=== PATIENT | male | born 1970 | race Caucasian/White ===

== ENCOUNTER 2018-09-25 22:00 | Emergency (ER) | payer SELFPAY ==
[~2018-09-25] VITALS: Ht 177.8 cm; Wt 78.1 kg
[2018-09-25 22:16] VITALS: BP 131/70; PULSE 90; RESP 18; Ht 177.8 cm; Wt 78.1 kg
[2018-09-27] MEDS ORDERED: NAPR-985 PO (18:46)
== END 2018-09-26 01:30 | disposition left against medical advice (07) ==
LOC: FTE 22:00
DX: Z53.21 Procedure and treatment not carried out due to patient leaving prior to being seen by health care provider (principal)

== ENCOUNTER → 2018-09-27 | Emergency (ER) | payer OTHER ==
[~2018-09-27] VITALS: Ht 162.6 cm; Wt 79.0 kg
[~2018-09-27] MED LIST: NAPR-985 PO
[2018-09-27 17:32] VITALS: BP 134/71; PULSE 84; RESP 18; Ht 162.6 cm; Wt 79.0 kg
--- NOTE | 2018-09-27 19:07 | ERD ---
ER Documentation Chief Complaint Chief Complaint right wrist pain HPI This is an otherwise healthy 48-year-old male presenting to the emergency department complaining of constant right wrist pain after injury 3 days ago. He states he was swinging his arm through the air when he accidentally hit his right wrist against the concrete ground. He reports 7/10 pain which is worse with movement. He took ibuprofen at home with some relief. He denies any other symptoms or injuries at this time. ROS All systems reviewed and are negative except as per history of present illness. Medications Home Meds Active Scripts Naproxen* (Naprosyn*) 500 Mg Tablet, 500 MG PO BID PRN for PAIN AND/OR INFLAMMATION, #30 TAB Prov:PAIGE GREENBERG PA-C 09/27/18 Allergies Allergies: Coded Allergies: No Known Drug Allergies (Verified Allergy, Unknown, 09/25/18) PMhx/Soc Medical and Surgical Hx: pt denies Medical Hx, pt denies Surgical Hx Physical Exam Vitals Vital Signs Date Temp Pulse Resp B/P (MAP) Pulse Ox O2 O2 Flow FiO2 Time Delivery Rate 09/27/18 98.0 84 18 134/71 99 17:32 (92) Physical Exam Const: No acute distress Head: Atraumatic Eyes: Normal Conjunctiva ENT: Normal External Ears, Nose and Mouth. Neck: Full range of motion. No meningismus. Resp: No respiratory distress. Skin: No petechiae or rashes Back: No midline or flank tenderness Ext: Mild tenderness palpation noted to the ulnar aspect of the right wrist. No snuffbox tenderness. Range of motion of the right wrist is slightly limited secondary to pain. Patient is neurovascularly intact to the right upper extremity. 2+ radial pulses noted to the right upper extremity. No obvious deformity or open fractures noted. Neur: Awake and alert Psych: Normal Mood and Affect Results 24 hrs [place] [id number] Radiology Main Line: [phone] DIAGNOSTIC IMAGING REPORT Patient: LONNIE MURCIA : 1970 Age: 48 Sex: M MR #: [id number] DOS: 09/27/18 0000 Ordering MD: PAIGE GREENBERG PA-C Location: [facility] Room/Bed: PROCEDURE: XR Wrist. CLINICAL INDICATION: Right wrist pain TECHNIQUE: 4 views of the right wrist were performed. COMPARISON: No prior studies are available for comparison. FINDINGS: There is no acute fracture. Alignment is normal. Joint spaces are preserved. Visualized soft tissues are grossly unremarkable. IMPRESSION: 1. No radiographic evidence of acute osseous abnormality. RPTAT: [facility] .Oscar Joaquin MD, MD Date Time Electronically viewed and signed by .Oscar Joaquin MD, on 09/27/2018 18:25 .K/ CC: PAIGE GREENBERG PA-C [id number] Procedures/MDM 48-year-old male presenting to the emergency department with signs and symptoms most consistent with right wrist contusion. X-ray of the right wrist showed no evidence of fracture or other abnormalities. The full report interpreted by the radiologist may be viewed above. Patient required a Velcro wrist splint to the right upper extremity for possible occult fracture.Splint Assessment: Neurovascularly intact post splint placement with good fit. Patient's extremity symptoms have stabilized while they have been evaluated in the department and are appropriate for outpatient follow up. No evidence of compartment syndrome, neurologic injury, vascular injury, open joint, open fracture, tendon laceration, or foreign body. Patient was advised to have 24 to 48-hour follow-up with orthopedic physician. He should return here immediately for any new or worsening or concerning symptoms per the patient was in agreement with the diagnosis, plan, need for follow-up, return precautions. No evidence of life-threatening pathology at time of discharge. Pt/family in agreement with discharge plan/diagnosis. Pt/family advised to return immediately with any new or worsening symptoms. Follow-up with primary care physician within the next 1-2 days. Disclaimer: Inadvertent spelling and grammatical errors are likely due to EHR/dictation software use and do not reflect on the overall quality of patient care. Also, please note that the electronic time recorded on this note does not necessarily reflect the actual time of the patient encounter. Departure Diagnosis: Primary Impression: Right wrist pain Condition: Fair Patient Instructions: Wrist Sprain Referrals: [facility] YOU HAVE RECEIVED A MEDICAL SCREENING EXAM AND THE RESULTS INDICATE THAT YOU DO NOT HAVE A CONDITION THAT REQUIRES URGENT TREATMENT IN THE EMERGENCY DEPARTMENT. FURTHER EVALUATION AND TREATMENT OF YOUR CONDITION CAN WAIT UNTIL YOU ARE SEEN IN YOUR DOCTORS OFFICE WITHIN THE NEXT 1-2 DAYS. IT IS YOUR RESPONSIBILITY TO MAKE AN APPOINTMENT FOR FOLOW-UP CARE. IF YOU HAVE A PRIMARY DOCTOR --you should call your primary doctor and schedule an appointment IF YOU DO NOT HAVE A PRIMARY DOCTOR YOU CAN CALL OUR PHYSICIAN REFERRAL HOTLINE AT IF YOU CAN NOT AFFORD TO SEE A PHYSICIAN YOU CAN CHOSE FROM THE FOLLOWING [facility] [address] [facility] [address] [facility] [address] [facility] [address] [facility] [address] [facility] [facility] [address] [facility] Urgent Care 7 a.m.- 11 p.m. Every Day of the Week NO APPOINTMENT OR AUTHORIZATION NEEDED [facility] Hours: Mon-Fri 9:00 AM - 5:00 PM Additional Instructions: SPECIALIST: YOU HAVE A MEDICAL CONDITION WHICH REQUIRES YOU TO SEE A SPECIALIST WITHIN THE NEXT 1-2 DAYS. PLEASE FOLLOW UP WITH YOUR PRIMARY PHYSICIAN FOR REFFERAL.IF YOU DO NOT HAVE A PRIMARY CARE PHYSICIAN AND/OR YOU CAN NOT AFFORD TO SEE A PHYSICIAN THE FOLLOWING RESOURCES HAVE BEEN SUPPLIED TO YOU. IT IS YOUR RESPONSIBILITY TO BE SEEN BY THE SPECIALIST: ORTHOPEDICS PAIGE GREENBERG PA-C Sep 27, 2018 19:07
== END | disposition home or self-care (01) ==
LOC: FTE 17:27
DX: M25.531 Pain in right wrist (principal)
CPT/HCPCS: 29125; 73110; Z7502